=== PATIENT | male | born 1950 | race Caucasian/White ===

== ENCOUNTER → 2018-06-27 17:19 | Outpatient (CLI) | payer OTHER, MEDICARE, SELFPAY ==
--- NOTE | 2018-06-27 17:23 | DI.MRI.S_ITS ---
PROCEDURE: MR CERVICAL SPINE WO CON INDICATIONS: Neck pain. Left shoulder and upper trapezius pain TECHNIQUE: Noncontrast sagittal T1 spin echo and T2 fast spin echo, sagittal STIR, foraminal oblique sagittal T2 fast spin echo, and axial gradient echo or T2 fast spin echo through the cervical spine. COMPARISON: [facility], MR, MR CERVICAL SPINE W&WO CON, 05/06/2015, 10:14. FINDINGS: Image quality: Excellent. Alignment and Curvature: There is grade 1 anterolisthesis of C2 on C3, C3 on C4, and C7 on T1. Bone Marrow: Marrow demonstrates normal overall signal. Spinal Cord: Visualized spinal cord has normal size and signal. There are foci of T2 hyperintensity in the cervical cord involving the level of C3, C4 and C5, consistent with MS plaques. Compared to the last exam on 05/06/2015, there is no significant change. No cerebellar tonsillar herniation. Paraspinous Soft Tissues: No paravertebral masses. Prevertebral soft tissues are normal in thickness. C2-C3: Preserved disc height. Moderate disc desiccation. There is diffuse posterior disc bulge. Mild bilateral facet arthropathy. The central canal is twiq-zt-iztzdmnala narrowed. No foraminal stenosis. There is no significant change from last exam. C3-C4: Mild loss of disc height. Moderate disc desiccation. There is diffuse posterior disc bulge. The central canal is yjvk-jn-ijxhzacddx narrowed. No foraminal stenosis. There is no significant change from last exam. C4-C5: Surgically fused. There is posterior osteophyte. Mild bilateral facet arthropathy. The central canal is temn-yp-spjuzeuhyd narrowed. Moderate bilateral foraminal stenosis. There is no significant change from last exam. C5-C6: Surgically fused. There is posterior osteophyte. Mild bilateral facet arthropathy. The central canal is fden-ds-kuzimzbydv narrowed. Rrhvwysn-ex-ufloag bilateral foraminal stenosis. There is no significant change from last exam. C6-C7: Moderate loss of disc height. There is posterior disc bulge and disc osteophyte complex. Mild bilateral facet arthropathy. The central canal is uncnhulk-ln-vgotwdmy narrowed. Moderate bilateral foraminal stenosis. There is no significant change from last exam. C7-T1: Moderate loss of disc height. There is diffuse posterior disc bulge and disc osteophyte complex. The central canal is moderately narrowed. Uuhtdruy-kp-rcwdsz bilateral foraminal stenosis. There is no significant change from last exam. IMPRESSION: 1. Stable foci of T2 hyperintensity in the cervical cord at level C3, C4 and C5, consistent with multiple sclerosis 2. Multilevel degenerative disc disease and facet arthropathy as described. 4. Moderate to severe central canal stenosis at C6-C7, moderate central canal stenosis at C7-T1, and vucr-dg-kvrlyael central canal stenosis at C2-C3, C3-C4, C4-C5 and C5-C6. 5. Multilevel foraminal stenosis as described. Dictated by: Clemencia Moise M.D. on 06/28/2018 at 16:27 Approved by: Clemencia Moise M.D. on 06/28/2018 at 17:35
== END ==
PROVIDERS: Visit Provider Neurological Surgery
DX: M47.22 Other spondylosis with radiculopathy, cervical region (principal); M25.512 Pain in left shoulder; M50.11 Cervical disc disorder with radiculopathy, high cervical region; M48.02 Spinal stenosis, cervical region; Z98.1 Arthrodesis status
CPT/HCPCS: 72141

== ENCOUNTER → 2021-08-06 12:57 | Outpatient (CLI) | payer MEDICARE, OTHER, SELFPAY ==
--- NOTE | 2021-08-06 13:01 | DI.MRI.S_ITS ---
PROCEDURE: MR CERVICAL SPINE WO CON INDICATIONS: Cervicalgia TECHNIQUE: Noncontrast sagittal T1 spin echo and T2 fast spin echo, sagittal STIR, foraminal oblique sagittal T2 fast spin echo, and axial gradient echo or T2 fast spin echo through the cervical spine. COMPARISON: [facility], MR, MR CERVICAL SPINE W&WO CON, 05/06/2015, 10:14. [facility], MR, MR CERVICAL SPINE WITH/WITHOUT CONTRAST, 04/12/2019, 19:15. [facility], CT, CT CERVICAL SPINE WITHOUT CONTRAST, 01/17/2021, 17:11. [facility], CR, XR CERVICAL SPINE 6+ VIEWS, 07/22/2021, 14:46. [facility], MR, MR CERVICAL SPINE WO CON, 06/27/2018, 17:43. FINDINGS: Image quality: Excellent. Alignment and Curvature: Trace degenerative anterolisthesis of C7 on T1.. C5 corpectomy with cage material placement and anterior plate and screw fixation with screws present anteriorly in C4 and C6 are noted. Bone Marrow: Marrow demonstrates normal overall signal. Spinal Cord: Again noted is cord signal abnormality at C3, C4, and C5. There is also cord signal abnormality in the upper thoracic region, as before. There is no evidence of progression of cord signal abnormality. No cerebellar tonsillar herniation. Paraspinous Soft Tissues: No paravertebral masses. Prevertebral soft tissues are normal in thickness. C2-C3: Again noted is a somewhat broad-based central posterior disc protrusion abutting the ventral cord. AP diameter of the canal is 8.5 mm. The foramina are patent. C3-C4: Mild disc bulge. Metallic artifact degrades the axial images. Based on sagittal images, AP diameter of the canal is approximately 9.3 mm. No significant foraminal stenosis. C4-C5: Fused. Mild disc bulge. Axial images are degraded by metallic artifact. Based on sagittal images, AP diameter of the canal is approximately 10 mm. Based on the previous CT, and supported by the current oblique images, there is severe right and moderate to severe left foraminal narrowing with a degree of impingement on the exiting bilateral C5 nerve roots. C5-C6: Fused. C5 corpectomy. No central canal stenosis. Large bilateral uncovertebral joint osteophytes. Moderate to severe bilateral foraminal narrowing with a degree of impingement on the exiting bilateral C6 nerve roots. C6-C7: Again noted is central posterior disc protrusion which indents on the ventral cord. Sagittal images suggest severe canal stenosis, with the AP diameter of the canal measuring approximately 6.3 mm. Findings are not significantly changed from the most recent prior MRI. Severe bilateral foraminal narrowing with bilateral C7 nerve root impingement. This is secondary to prominent uncovertebral joint osteophytes and associated disc osteophyte complex. C7-T1: Disc bulge. No significant canal stenosis. Mild right foraminal narrowing and moderate left foraminal narrowing. IMPRESSION: 1. Remote C4 through C6 fusion with C5 corpectomy. 2. Chronic extensive cord signal abnormality, consistent with a demyelinating disorder. 3. Multilevel canal stenosis, mild at C3-C4, borderline at C4-C5, and severe at C6-C7. 4. Multilevel significant foraminal narrowing as described above. Dictated by: Brandon Hahn M.D. on 08/06/2021 at 15:22 Approved by: Brandon Hahn M.D. on 08/06/2021 at 15:42
== END ==
PROVIDERS: Referring Provider Physical Medicine & Rehabilitation Pain Medicine; Visit Provider Physical Medicine & Rehabilitation Pain Medicine
DX: M48.02 Spinal stenosis, cervical region (principal); M54.2 Cervicalgia; Z98.1 Arthrodesis status
CPT/HCPCS: 72141

== ENCOUNTER → 2024-04-26 09:58 | Outpatient (CLI) | payer MEDICARE, OTHER, SELFPAY ==
--- NOTE | 2024-04-26 10:01 | DI.RAD.S_ITS ---
PROCEDURE: XR CERVICAL SPINE 4V OR 5V INDICATIONS: NECK PAIN TECHNIQUE: 5 views of the cervical spine were acquired. COMPARISON: None. FINDINGS: Bones: C5 corpectomy with strut graft and anterior plate and screw hardware C2-3 and C3-4 large flowing anterior osteophyte. Craniovertebral relationships within normal limits. Soft tissues: Prevertebral soft tissues are normal in thickness. IMPRESSION: No acute findings. C5 corpectomy, graft and instrumentation in good position Approved by: Florencio Lu M.D. on 04/26/2024 at 13:26
== END ==
PROVIDERS: Referring Provider Physical Medicine & Rehabilitation; Visit Provider Physical Medicine & Rehabilitation
DX: M50.90 Cervical disc disorder, unspecified, unspecified cervical region (principal); G35 Multiple sclerosis; G50.0 Trigeminal neuralgia; Z90.89 Acquired absence of other organs; R25.2 Cramp and spasm
CPT/HCPCS: 72050; 99214